=== PATIENT | male | born 1965 | race Caucasian/White ===

== ENCOUNTER 2023-06-21 13:18 | Outpatient (RCR) | payer OTHER, SELFPAY | END 2023-06-21 23:59 | disposition home or self-care (01) | LOC: RPT 13:18 | PROVIDERS: ATTENDING PHYSICIAN Orthopaedic Surgery; FAMILY PHYSICIAN Family Medicine | DX: Z47.89 Encounter for other orthopedic aftercare (principal); M25.512 Pain in left shoulder; Z73.6 Limitation of activities due to disability; S46.012D Strain of muscle(s) and tendon(s) of the rotator cuff of left shoulder, subsequent encounter | CPT/HCPCS: 97010; 97110; 97162; 97535 ==

== ENCOUNTER 2023-06-23 08:56 | Outpatient (RCR) | payer OTHER, SELFPAY | END 2023-06-23 10:37 | disposition home or self-care (01) | LOC: RPT 08:56 | PROVIDERS: ATTENDING PHYSICIAN Orthopaedic Surgery; FAMILY PHYSICIAN Family Medicine | DX: Z47.89 Encounter for other orthopedic aftercare (principal); M25.512 Pain in left shoulder; Z98.890 Other specified postprocedural states; Z73.6 Limitation of activities due to disability | CPT/HCPCS: 97110; 97535 ==

== ENCOUNTER → 2023-11-10 10:30 | Outpatient (REF) | payer OTHER, SELFPAY | LOC: HWRAD 10:30 | PROVIDERS: ATTENDING PHYSICIAN Physician Assistant | DX: M25.532 Pain in left wrist (principal); M79.642 Pain in left hand | CPT/HCPCS: 73110; 73130 ==

== ENCOUNTER → 2023-12-23 18:04 | Outpatient (REF) | payer OTHER, SELFPAY | LOC: MRI 3T 18:04 | PROVIDERS: ATTENDING PHYSICIAN Specialist; FAMILY PHYSICIAN Family Medicine | DX: M25.561 Pain in right knee (principal) | CPT/HCPCS: 73721 ==

== ENCOUNTER 2024-01-20 05:54 | Day surgery (SDC) | payer OTHER, SELFPAY ==
[2024-01-09 12:53] VITALS: BMI 30.6
--- NOTE | 2024-01-09 16:36 | PTCARENOTE ---
Abn ECG, Dr. Villalobos notified, no requests made.
[2024-01-20 08:16] VITALS: BP 172/100; BMI 30.6
[2024-01-20] MEDS: CELEBREX 200 MG PO (08:23)
[2024-01-20 11:20] VITALS: BP 151/85; BP 172/100
[2024-01-20 11:30] VITALS: BP 154/88
[2024-01-20 11:45] VITALS: BP 152/89
[2024-01-20 12:15] VITALS: BP 159/90
[2024-01-20 12:30] VITALS: BP 160/88
== END 2024-01-20 12:41 | disposition home or self-care (01) ==
LOC: SDS 05:54
PROVIDERS: ATTENDING PHYSICIAN Specialist; FAMILY PHYSICIAN Family Medicine; OTHER PHYSICIAN Internal Medicine Cardiovascular Disease
DX: S83.231A Complex tear of medial meniscus, current injury, right knee, initial encounter (principal); X58.XXXA Exposure to other specified factors, initial encounter; M22.41 Chondromalacia patellae, right knee
CPT/HCPCS: 29881; 36415; 93005

== ENCOUNTER 2024-03-19 13:09 | Outpatient (RCR) | payer OTHER, SELFPAY | END 2024-03-19 23:59 | disposition home or self-care (01) | LOC: RPT 13:09 | PROVIDERS: ATTENDING PHYSICIAN Specialist; FAMILY PHYSICIAN Family Medicine | DX: Z47.89 Encounter for other orthopedic aftercare (principal); M25.561 Pain in right knee; Z73.6 Limitation of activities due to disability; R26.89 Other abnormalities of gait and mobility | CPT/HCPCS: 97110; 97162; 97530; 97535 ==

== ENCOUNTER 2024-04-13 06:48 | Outpatient (RCR) | payer OTHER, SELFPAY | END 2024-04-13 23:59 | disposition home or self-care (01) | LOC: RPT 06:48 | PROVIDERS: ATTENDING PHYSICIAN Specialist; FAMILY PHYSICIAN Family Medicine | DX: Z47.89 Encounter for other orthopedic aftercare (principal); M25.561 Pain in right knee; Z73.6 Limitation of activities due to disability; R26.89 Other abnormalities of gait and mobility; M62.81 Muscle weakness (generalized) | CPT/HCPCS: 97110; 97530 ==

== ENCOUNTER → 2024-09-15 06:16 | Outpatient (REF) | payer OTHER, SELFPAY | LOC: MRI 06:16 | PROVIDERS: ATTENDING PHYSICIAN Orthopaedic Surgery; FAMILY PHYSICIAN Family Medicine | DX: M25.511 Pain in right shoulder (principal) | CPT/HCPCS: 73221 ==